=== PATIENT | male | born 1980 | race Caucasian/White ===

== ENCOUNTER 2021-02-24 12:01 | Emergency (ER) | payer SELFPAY ==
[2021-02-24] MEDS ORDERED: Sodium Chloride 0.9% 10 ML Syringe FLUSH PRN (12:05)
[2021-02-24] MEDS ORDERED: Potassium Chloride 20 MEQ Tab.ER PO ONE ×2 (12:38→15:52)
[2021-02-24] MEDS ORDERED: Potassium Chloride 20 MEQ in Premix Bag 1 BAG IV ONE (12:38)
[2021-02-24] MEDS ORDERED: Magnesium Oxide 400 MG Tab PO ONE (12:59)
[2021-02-24] MEDS ORDERED: MVI, Adult with Vitamin K 10 ML, Thiamine 100 MG, Folic Acid 1 MG, Magnesium Sulfate 3 ... IV SCH ×5 (13:00)
[2021-02-24] MEDS ORDERED: LORazepam 1 MG Tab PO ONE (13:07)
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
[2021-02-24] MEDS ORDERED: Potassium Chloride 20 MEQ, Lidocaine 1% 2 ML in Sodium Chloride 0.9% 100 ML IV SCH (14:00)
[2021-02-24] MEDS ORDERED: LORazepam 0.5 MG Tab PO ONE (17:52)
== END 2021-02-24 18:29 | disposition home or self-care (01) ==
LOC: JP.ED 12:01
DX: R56.9 Unspecified convulsions (principal); K70.10 Alcoholic hepatitis without ascites; F10.230 Alcohol dependence with withdrawal, uncomplicated; E87.6 Hypokalemia; E83.42 Hypomagnesemia; Z72.0 Tobacco use
CPT/HCPCS: 36415; 80053; 80305; 80307; 81001; 83735; 84132; 96365; 96367; 99285; A9270; J2001; J3411; J3475; J3480; J7030; J3490